=== PATIENT | female | born 1990 | race Caucasian/White ===

== ENCOUNTER → 2018-05-27 | Outpatient (CLI) | payer BC ==
--- NOTE | 2018-05-27 16:14 | US ---
EXAMINATION TYPE: US pelvis complete transvag DATE OF EXAM: 05/27/2018 COMPARISON: NONE CLINICAL HISTORY: 28-year-old female N92.6 Irregular menstruation. Irregular heavy painful cycles x 9 months TECHNIQUE: Transabdominal sonographic images of the pelvis were acquired. Date of LMP: 3 weeks ago FINDINGS: EXAM MEASUREMENTS: Uterus: 8.0 x 3.7 x 4.9 cm Endometrial Stripe: 0.7 cm Right Ovary: 3.2 x 2.0 x 2.2 cm Left Ovary: 2.5 x 2.0 x 1.4 cm 1. Uterus: anteverted, wnl 2. Endometrium: wnl for patient's LMP 3. Right Ovary: wnl 4. Left Ovary: wnl 5. Bilateral Adnexa: wnl 6. Posterior cul-de-sac: wnl IMPRESSION: No specific abnormality of the pelvis on transabdominal scanning.
== END | disposition home or self-care (01) ==
LOC: RADUSWWP 12:58
PROVIDERS: ATTEND Obstetrics & Gynecology
DX: N92.6 Irregular menstruation, unspecified (principal)
CPT/HCPCS: 76856

== ENCOUNTER → 2018-10-13 | Outpatient (CLI) | payer BC ==
[2018-10-14 03:11] LABS: T4, Free (Free Thyroxine) 1.1 ng/dL (0.80-1.80)
== END | disposition home or self-care (01) ==
LOC: LABWHC1 17:04
PROVIDERS: ATTEND Obstetrics & Gynecology
DX: N92.6 Irregular menstruation, unspecified (principal); Z13.29 Encounter for screening for other suspected endocrine disorder
CPT/HCPCS: 36415; 84439; 84443